=== PATIENT | female | born 1990 | race Caucasian/White ===

== ENCOUNTER 2016-06-23 23:18 | Emergency (ER) | payer OTHER ==
[~2016-06-23] VITALS: Ht 152.4 cm; Wt 56.7 kg
[2016-06-23 23:23] VITALS: BP 132/99
== END 2016-06-23 23:53 ==
LOC: ER 23:22
DX: Z00.8 Encounter for other general examination (principal); F41.9 Anxiety disorder, unspecified
CPT/HCPCS: 99283; A4606; Z7610